=== PATIENT | female | born 1950 | race Caucasian/White ===

== ENCOUNTER 2021-05-12 02:56 | Observation (INO) ==
[2021-05-12] MEDS ORDERED: Ondansetron 4 MG/2 ML VIAL IVP PRN (05:05)
[2021-05-12] MEDS ORDERED: Naloxone 0.4 MG/ML INJ IVP PRN (05:05)
[2021-05-12 06:01] LABS: Hematocrit 39.4 % (35.3-44.9); Hemoglobin 12.9 g/dL (11.5-15.4); Mean Corpuscular HGB Conc 32.7 g/dL (31.6-35.5); Mean Corpuscular Hemoglobin 31.8 pg (28.0-33.3); Mean Platelet Volume 11.6 fL (9.4-12.4); Platelet Count 253 K/mcL (140-400); Red Blood Count 4.06 M/mcL (3.82-4.97); Red Cell Distribution Width 14.4 % (11.5-14.5); White Blood Count 10.8 K/mcL (4.3-11.1)
[2021-05-12 06:12] LABS: Prothrombin Time 11.5 Seconds (9.4-12.1)
[2021-05-12] MEDS: 0.9 % Sodium Chloride 1,000 ML IVC SCH ×2 (06:13→20:43)
[2021-05-12 06:14] LABS: Activated Partial Thrombo Time 28.7 Seconds (26.0-36.0)
[2021-05-12 06:33] LABS: Calcium 9.7 mg/dL (8.6-10.3); Potassium 4.2 mEq/L (3.5-5.1)
[2021-05-12] MEDS: Ondansetron 4 MG/2 ML VIAL IVP PRN (18:15)
[2021-05-13 07:20] LABS: BUN/Creatinine Ratio 15 (6-26); Blood Urea Nitrogen 15 mg/dL (8-23); Calcium 9.4 mg/dL (8.6-10.3); Carbon Dioxide 29 mEq/L (23-29); Chloride 104 mEq/L (98-107); Glucose 101 mg/dL (70-105); Magnesium 1.9 mg/dL (1.6-2.6); Osmolality,Calculated 295 (280-300); Phosphorous 3.9 mg/dL (2.7-4.5); Potassium 3.7 mEq/L (3.5-5.1); Sodium 142 mEq/L (136-145); eGFR For African Americans > 60 (> 60); eGFR For Non-African Americans 54 (> 60)
[2021-05-13] MEDS: Ondansetron 4 MG/2 ML VIAL IVP PRN (08:17)
[2021-05-13] MEDS: Acetaminophen 325 MG TABLET PO PRN (18:38)
[2021-05-13] MEDS: traZODone 50 MG TABLET PO PRN (21:39)
[2021-05-14] MEDS: Levothyroxine 25 MCG TABLET PO SCH (05:11)
[2021-05-14] MEDS: *HR* Enoxaparin 40 MG/0.4 ML SYRINGE SQ SCH (05:12)
[2021-05-14] MEDS: Acetaminophen 325 MG TABLET PO PRN ×2 (08:58→19:37)
[2021-05-14] MEDS: amLODIPine 5 MG TABLET PO SCH (08:59)
[2021-05-14] MEDS: lisinopriL 20 MG TABLET PO SCH (09:00)
[2021-05-14] MEDS ORDERED: *HR* OxyCODONE Immed Rel 5 MG TABLET PO ONE (13:31)
[2021-05-14] MEDS ORDERED: Isovue-370 500 ML BOTTLE IVP ONE (13:31)
[2021-05-14 18:38] LABS: Bilirubin,Urine Negative (Negative); Blood,Urine Negative (Negative); Clarity,Urine Clear (Clear); Color,Urine Colorless (Yellow); Glucose,Urine (UA) Normal (Normal); Ketones,Urine Negative (Negative); Leukocyte Esterase,Urine Negative (Negative); Nitrite,Urine Negative (Negative); PH,Urine 6.5 pH Units (5.0-8.0); Protein,Urine Trace mg/dL (Neg-Trace); Specific Gravity,Urine > 1.030 (1.010-1.025); Urobilinogen,Urine Normal (Normal)
[2021-05-14] MEDS: traZODone 50 MG TABLET PO PRN (21:14)
[2021-05-15] MEDS: Acetaminophen 325 MG TABLET PO PRN ×2 (03:01→09:39)
[2021-05-15] MEDS ORDERED: Ipratropium Neb 0.5 MG NEBULIZER IH ONE (03:39)
[2021-05-15] MEDS: Levothyroxine 25 MCG TABLET PO SCH (05:22)
[2021-05-15] MEDS: *HR* Enoxaparin 40 MG/0.4 ML SYRINGE SQ SCH (05:22)
[2021-05-15 07:33] VITALS: O2SAT 91
[2021-05-15 07:35] VITALS: BP 129/68; PULSE 60; TEMP 97.7
[2021-05-15] MEDS: lisinopriL 20 MG TABLET PO SCH (08:39)
[2021-05-15] MEDS: amLODIPine 5 MG TABLET PO SCH (08:41)
[2021-05-15] MEDS ORDERED: Budesonide/Formoterol 160/4.5 1 PUFF INH IH SCH (10:00)
== END 2021-05-15 11:29 | disposition home or self-care (01) ==
LOC: 3BNU → SUATTDRO 04:16
PROVIDERS: ADMIT Internal Medicine; ATTEND Registered Nurse